=== PATIENT | male | born 1945 | race Caucasian/White ===

== ENCOUNTER 2022-01-12 11:06 | Inpatient (IN) | payer MEDICARE, OTHER ==
[2022-01-11 20:00] VITALS: BP 115/65
[~2022-01-12] VITALS: Ht 180.3 cm; Wt 117.0 kg
--- NOTE | 2022-01-12 11:37 | NUR ---
IV LINE IS ESTABLISHED, BLOOD SPECIMEN COLLECTED AND SENT TO THE LAB. THE LINE IS SALINE LOCKED.
--- NOTE | 2022-01-12 11:43 | NUR ---
URINE COLLECTED AND SENT TO THE LAB
--- NOTE | 2022-01-12 11:43 | NUR ---
X-RAY TECH AT THE BEDSIDE
[2022-01-12 11:50] LABS: BASOPHILS # (AUTO) 0.1 K/uL (0.0-0.2); BASOPHILS % (AUTO) 0.7 % (0.0-2.0); EOSINOPHILS % (AUTO) 1.6 % (0.0-6.0); HEMATOCRIT 30 % (39-51); HEMOGLOBIN 9.8 g/dL (13.5-17.5); LYMPHOCYTES % (AUTO) 13.2 % (20.0-44.0); MEAN CORPUSCULAR HGB CONC 33 g/dl (31.0-36.0); MEAN CORPUSCULAR VOLUME 86 fL (80-96); MONOCYTES # (AUTO) 0.6 K/uL (0.1-1.30); MONOCYTES % (AUTO) 8.5 % (2.0-12.0); NEUTROPHILS # (AUTO) 5.6 K/uL (1.8-8.9); PLATELET COUNT (AUTO) 351 K/uL (150-450); RED BLOOD CELL COUNT(AUTO) 3.46 MIL/uL (4.5-6.0); WHITE BLOOD COUNT (AUTO) 7.4 K/uL (4.3-11.0)
[2022-01-12 11:53] LABS: BILIRUBIN,URINE NEGATIVE (NEGATIVE); COLOR,URINE YELLOW (YELLOW); LEUKOCYTE ESTERASE ,URINE LARGE (NEGATIVE); NITRITE, URINE POSITIVE (NEGATIVE); PROTEIN,URINE NEGATIVE (NEGATIVE); UGLUCOSE NEGATIVE (NEGATIVE); UROBILINOGEN,URINE 0.2 EU/dL (0.2)
[2022-01-12 12:07] LABS: CALCIUM, SERUM 8.8 mg/dL (8.5-10.1); CARBON DIOXIDE 28 mmol/L (21-32); CHLORIDE 105 mmol/L (98-107); CREATININE 0.8 mg/dL (0.6-1.3); GLUCOSE 96 mg/dL (74-106); POTASSIUM 3.3 mmol/L (3.5-5.1); SODIUM SERUM 137 mmol/L (136-145); UREA NITROGEN, BLOOD 13 mg/dL (7-18)
[2022-01-12 12:12] LABS: ALANINE AMINOTRANSFERASE 10 U/L (12-78); ALBUMIN 2.3 g/dL (3.4-5.0); ALKALINE PHOSPHATASE 71 U/L (46-116); ASPARTATE AMINOTRANSFERASE 18 U/L (15-37); BILIRUBIN,DIRECT 0.1 mg/dL (0.0-0.2); BILIRUBIN,TOTAL 0.2 mg/dL (0.2-1.0); TOTAL PROTEIN, SERUM 6.6 g/dL (6.4-8.2)
[2022-01-12] MEDS ORDERED: PIPERACILLIN /TAZOBACTAM 3.375 G in IV D5W 50 ML IV ONE (12:30)
[2022-01-12] MEDS ORDERED: VANCOMYCIN 1 GM in IV D5W 250 ML IV ONE (12:30)
--- NOTE | 2022-01-12 12:32 | NUR ---
LEFT SHOULDER PAIN/REDNESS,THINKS IT'S SPIDER BITE
--- NOTE | 2022-01-12 12:36 | NUR ---
COVID TEST COLLECTED AND SENT
[2022-01-12 12:39] LABS: BACTERIA,URINE 2+ /HPF (None Seen); SQUAMOUS EPITHELIAL CELL,UR Few /HPF (None Seen); WBC,URINE 21-50 /HPF (0-3)
[2022-01-12] MEDS ORDERED: SPIR25TA6 PO (13:11)
[2022-01-12] MEDS ORDERED: DULO30CA52 PO (13:11)
[2022-01-12] MEDS ORDERED: POTA8TAB3 PO (13:11)
[2022-01-12] MEDS ORDERED: RIVA15TA PO (13:11)
[2022-01-12] MEDS ORDERED: ZINC50TA69 PO (13:11)
[2022-01-12] MEDS ORDERED: FINA5TAB11 PO (13:11)
[2022-01-12] MEDS ORDERED: INSU100I47 SQ (13:11)
[2022-01-12] MEDS ORDERED: LEVA0.6320 IH (13:11)
[2022-01-12] MEDS ORDERED: ASCO-340 PO (13:11)
[2022-01-12] MEDS ORDERED: METO100T14 PO (13:11)
[2022-01-12] MEDS ORDERED: PANT40TA49 PO (13:11)
[2022-01-12] MEDS ORDERED: TAMS-12 PO (13:11)
[2022-01-12] MEDS ORDERED: BACL20TA PO (13:11)
[2022-01-12] MEDS ORDERED: BETH10TA4 PO (13:12)
[2022-01-12] MEDS ORDERED: NA P133E RC (13:12)
[2022-01-12] MEDS ORDERED: TYL2T PO (13:12)
[2022-01-12] MEDS ORDERED: DOCU-141 PO (13:12)
[2022-01-12] MEDS ORDERED: HYDR-4303 PO (13:12)
[2022-01-12] MEDS ORDERED: MAGN400O6 PO (13:12)
[2022-01-12] MEDS ORDERED: CEFA1VIA3 IV (13:12)
[2022-01-12] MEDS ORDERED: ACET-868 PO (13:12)
[2022-01-12] MEDS ORDERED: BISA10SU61 RC (13:12)
--- NOTE | 2022-01-12 13:18 | NUR ---
CALLED NURSING SUP CELESTINO PT BED
--- NOTE | 2022-01-12 16:19 | NUR ---
REPORT GIVEN TO YIFAN FOR ASHELY
[2022-01-12 16:22] LABS: FERRITIN 111 ng/mL (8-388); IRON, SERUM 27 ug/dl (50-175)
--- NOTE | 2022-01-12 16:29 | NUR ---
THE PATIENT IS TRANSFERED TO ASSIGNED ROOM IN STABLE CONDITION AND PER POLICY
[2022-01-12] MEDS ORDERED: PIPERACILLIN /TAZOBACTAM 3.375 G in IV D5W 100 ML IV SCH (16:30)
[2022-01-12 16:52] VITALS: BP 118/70
[2022-01-12] MEDS ORDERED: ENOXAPARIN SODIUM 40 MG/0.4 ML DISP.SYRIN SQ SCH (17:00)
--- NOTE | 2022-01-12 17:51 | NUR ---
RECEIVED PATIENT AWAKE ALERT FROM ER REFUSED DESSING TO BE REMOVED FROM LEG,NO ACUTE DISTRESSS,WILL ENDORSE TO NIGHT RN FOR CONTINUITY OF CARE AND ADMISSION.
[2022-01-12] MEDS: ACETAMINOPHEN 325 MG TABLET PO PRN (18:00)
[2022-01-12] MEDS: IV NS 0.9% 1,000 ML IV PRN (18:52)
--- NOTE | 2022-01-12 19:42 | NUR ---
RN NOTE PATIENT WAS TRANSFERRED TO UNIT FROM ER, PATIENT CAME TO UNIT VIA GURNEY WITH NO SIGNS OF DISTRESS. REPORT RECEIVED FROM JEAN-PAUL. PER ER NURSE GUZMAN CATHETER WAS ADVANCED AND REINFLATED AGAIN, IN PLACE AND DRAINING WELL. PATIENT WAS ORIENTED TO ROOM SET UP AND SHOWED PATIENT HOW TO USE CALL LIGHT. PATIENT AWAKE IN BED RESTING, A/O X3. NO S/S OF PAIN NOTED AT THIS TIME. ON ROOM AIR, NO DISTRESS OR SHORTNESS OF BREATH NOTED. IV ACCESS LFA #20G, INTACT, PATENT AND FLUSHING WELL. FALL AND SAFETY MEASURES IN PLACE, BED ALARM ON BED IN LOW AND LOCK POSITION, CALL LIGHT AND TABLE WITHIN EASY REACH, SIDE RAILS UP X2. WILL ENDORSE TO STAGE MANAGER.
[2022-01-12 20:00] VITALS: BP 115/65
--- NOTE | 2022-01-12 20:28 | NUR ---
RN NOTE RECEIVED PT IN BED, AWAKE, AOX3. DENIES ANY PAIN AT THIS TIME. NO SOB. ON O2 AT 2L WITH 94% O2 SAT. 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 PT WITH PICC ON BARNEY, INTACT AND PATENT, FLUSHES WELL. NS RUNNING AT 75ML/HR. GUZMAN IN PLACE, DRAINING CLEAR URINE OUTPUT. PT WITH WOUND ON LFOOT, CONNECTED TO WOUNDVAC. ALL SAFETY MEASURES IN PLACE, BELONGINGS AND CALL LIGHT WITHIN REACH. WILL CONTINUE TO MONITOR.
[2022-01-12] MEDS ORDERED: BISACODYL SUPP (10 MG) 10 MG/SUPP.RECT SUPP.RECT RC PRN (21:00)
[2022-01-12] MEDS: VANCOMYCIN 1.25 GM in IV D5W 250 ML IV SCH (21:51)
[2022-01-12] MEDS: SPIRONOLACTONE 25 MG TABLET PO SCH (21:55)
[2022-01-12] MEDS: TAMSULOSIN 0.4 MG CAP.SR.24H PO SCH (21:55)
[2022-01-12] MEDS: METOPROLOL TARTRATE 50 MG TABLET PO SCH (21:56)
[2022-01-12] MEDS: RIVAROXABAN 15 MG TABLET PO SCH (21:57)
[2022-01-12] MEDS ORDERED: DEXTROSE 50%-WATER 50 ML DISP.SYRIN IV PRN (22:00)
[2022-01-12] MEDS: DOCUSATE SODIUM 100 MG CAPSULE PO SCH (22:00)
[2022-01-12] MEDS: BLOOD SUGAR DIAGNOSTIC 1 EACH STRIP VI SCH (22:34)
[2022-01-12] MEDS: PIPERACILLIN /TAZOBACTAM 3.375 G in IV D5W 100 ML IV SCH (23:19)
[2022-01-13 04:00] VITALS: BP 121/78
[2022-01-13] MEDS: PIPERACILLIN /TAZOBACTAM 3.375 G in IV D5W 100 ML IV SCH ×3 (06:11→22:22)
[2022-01-13 06:39] LABS: BASOPHILS % (AUTO) 0.6 % (0.0-2.0); EOSINOPHILS % (AUTO) 2.6 % (0.0-6.0); HEMATOCRIT 27 % (39-51); HEMOGLOBIN 8.7 g/dL (13.5-17.5); LYMPHOCYTES % (AUTO) 16.1 % (20.0-44.0); MEAN CORPUSCULAR HGB CONC 32 g/dl (31.0-36.0); MEAN CORPUSCULAR VOLUME 87 fL (80-96); MONOCYTES # (AUTO) 0.6 K/uL (0.1-1.30); MONOCYTES % (AUTO) 9.3 % (2.0-12.0); NEUTROPHILS # (AUTO) 4.4 K/uL (1.8-8.9); NEUTROPHILS % (AUTO) 71.4 % (43.0-81.0); PLATELET COUNT (AUTO) 323 K/uL (150-450); RED BLOOD CELL COUNT(AUTO) 3.15 MIL/uL (4.5-6.0); WHITE BLOOD COUNT (AUTO) 6.2 K/uL (4.3-11.0)
--- NOTE | 2022-01-13 06:52 | NUR ---
RN NOTE PT ABLE TO MAKE NEEDS KNOWN. ASSISTED ON NEEDS. ON FREQUENT VISUALS CHECKS, CALL LIGHT WITHIN REACH AT ALL TIMES. CHANGE PICC LINE DRESSING, NO S/SX OF INFECTION NOTED. FLUSHES WELL WITH GOOD BLOOD RETURN. DUE IV ATBS WERE GIVEN ORDERED. CONTINUE ON IVFLUIDS OF NS AT 75ML/HR. 2 LOOSE BM NOTED. WOUND VAC IN PLACE CONTINUOUS. GUZMAN DRAINS WELL. WILL ENDORSE TO NEXT SHIFT NURSE FOR ASHELY.
[2022-01-13 07:04] LABS: CALCIUM, SERUM 8.9 mg/dL (8.5-10.1); CREATININE 0.8 mg/dL (0.6-1.3); MAGNESIUM 1.9 mg/dL (1.8-2.4); PHOSPHORUS 3.1 mg/dL (2.5-4.9)
--- NOTE | 2022-01-13 07:35 | NUR ---
WOUND CARE CONSULT: PT PRESENTS WITH LEFT LATERAL ANKLE WOUND, RASH/REDNESS TO ABDOMINAL/GROIN FOLDS AND BUTTOCKS WELL INTACT DEEP TISSUE INJURY TO SACRUM WITH SURROUNDING SCARRING, ALL PRESENT ON ADMISSION. RECOMMENDATIONS MADE FOR SKIN PROTECTION. DISCUSSED WITH NURSING STAFF. PT IS INCONTINENT OF STOOL. DPM CONSULT CALLED TO DR HAMPAPUR. VEGA IN AGREEMENT WITH PLAN OF CARE. Addendum: 01/13/22 at 0737 by LEANNA THIBODEAUX WNDNU Amended: Links added.
--- NOTE | 2022-01-13 07:54 | NUR ---
RN NOTE RECEIVED PT IN BED, AWAKE, AOX3. DENIES ANY PAIN AT THIS TIME. NO SOB. ON O2 AT 2L WITH 94% O2 SAT. 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 PT WITH PICC ON BARNEY, INTACT AND PATENT, FLUSHES WELL. NS RUNNING AT 75ML/HR. GUZMAN IN PLACE, DRAINING CLEAR URINE OUTPUT. PT WITH WOUND ON Lt ANKLE. PICTURE ON FILE. ALL SAFETY MEASURES IN PLACE, BELONGINGS AND CALL LIGHT WITHIN REACH. WILL CONTINUE TO MONITOR.
[2022-01-13] MEDS ORDERED: Z GUARD REMEDY 4 OZ OINT TP PRN (08:00)
[2022-01-13] MEDS: BLOOD SUGAR DIAGNOSTIC 1 EACH STRIP VI SCH ×4 (08:36→21:59)
[2022-01-13] MEDS: INSULIN REGULAR, HUMAN 100 UNIT/ML 3 ML VIAL SQ PRN ×2 (08:38→11:17)
[2022-01-13] MEDS: PANTOPRAZOLE 40 MG TABLET.DR PO SCH (08:54)
[2022-01-13] MEDS: DOCUSATE SODIUM 100 MG CAPSULE PO SCH ×2 (09:03→21:03)
[2022-01-13] MEDS: SPIRONOLACTONE 25 MG TABLET PO SCH ×2 (09:03→17:24)
[2022-01-13] MEDS: DULOXETINE HCL 30 MG CAPSULE.DR PO SCH (09:04)
[2022-01-13] MEDS: METOPROLOL TARTRATE 50 MG TABLET PO SCH ×2 (09:05→21:04)
[2022-01-13] MEDS: FINASTERIDE (5 MG) 5 MG TABLET PO SCH (09:05)
[2022-01-13] MEDS: ZINC SULFATE 220 MG CAPSULE PO SCH (09:06)
[2022-01-13] MEDS: BETHANECHOL CHLORIDE (10 MG) 10 MG TABLET PO SCH ×3 (09:06→17:24)
[2022-01-13] MEDS: ASCORBIC ACID 500 MG TABLET PO SCH (09:06)
[2022-01-13] MEDS: CLOTRIMAZOLE 1% 15 GM TUBE TP SCH ×2 (09:18→17:29)
[2022-01-13] MEDS: Z GUARD REMEDY 4 OZ OINT TP SCH (09:19)
[2022-01-13] MEDS: VANCOMYCIN 1.25 GM in IV D5W 250 ML IV SCH ×2 (09:24→22:17)
[2022-01-13] MEDS ORDERED: POTASSIUM CHLORIDE 20 MEQ TAB.PRT.SR PO ONE (09:30)
[2022-01-13 09:40] VITALS: BP 125/73
[2022-01-13 12:00] VITALS: BP 125/73
--- NOTE | 2022-01-13 12:45 | NUR ---
SS Note: SS received consult on pt.s request. Pt. Is a 76-year-old male who demonstrates adequate insight to the reason for hospitalization. Per EMR, pt. was brought to ER for abdominal pain from his nursing facility. Pt. was oriented x3, alert, and cooperative. During interview, pt. was capable of following directions and appeared unkempt. Pt.s speech was at a normal rate and pt.s mood was elevated. Pt. reported no hx of mental health, substance abuse, suicidal ideation, or homicidal ideation. Pt. denies auditory hallucinations, visual hallucinations, paranoia, or delusions. SW explored pt.s living situation. Per pt., he stays at a nursing facility and has been there for couple weeks. Pt. does not remember the name of the nursing facility, pt. stated it is somewhere located in [place]. Pt. stated that he wants a new snf due to the current one not having any doctors on site. Pt. mentioned that he wants a doctor at the snf just incase of an emergency. Per pt., the nurses/MANAGER VALIDATION are supportive and care for him as needed. Plan: SW provided available resources and pt. denied. SW will notify case management regarding placement.
[2022-01-13] MEDS: IV NS 0.9% 1,000 ML IV PRN (12:58)
[2022-01-13 14:00] VITALS: BP_SYST 118; BP_SYST 125; BP_DIAS 73; BP_DIAS 75
--- NOTE | 2022-01-13 15:52 | NUR ---
RN NOTE ORDERS RECEIVED FOR STOOL SPECIMEN COLLECTION FROM [facility]. SMALL AMOUNT OF STOOL OBTAINED AND SENT TO LAB FOR C. DIFF TESTING. PT ISOLATED.
[2022-01-13 16:00] VITALS: BP 118/75
--- NOTE | 2022-01-13 16:26 | NUR ---
GUZMAN CATHETER WAS RECENTLY CHANGED IN THE EMERGENCY ROOM DURING ADMISSION. DRAINING WELL. CHARGE NURSE INFORMED. Addendum: 01/13/22 at 1630 by GEMMA DAS RN Amended: Links added.
[2022-01-13] MEDS: *INSULIN REGULAR(HUMULIN R)HUM 100 UNIT/ML VIAL SQ PRN ×2 (16:50→22:00)
[2022-01-13] MEDS: RIVAROXABAN 15 MG TABLET PO SCH (17:27)
--- NOTE | 2022-01-13 18:28 | NUR ---
RN NOTE PT IN BED, AWAKE, AOX3. DENIES ANY PAIN AT THIS TIME. NO SOB. ON O2 AT 2L WITH 94% O2 SAT. 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 PT WITH PICC ON BARNEY, INTACT AND PATENT, FLUSHES WELL. NS RUNNING AT 75ML/HR. GUZMAN IN PLACE, DRAINING CLEAR URINE OUTPUT. WOUND CARE PERFORMED ON LT ANKLE BY DR ENRIQUEZ. ALL SAFETY MEASURES IN PLACE, BELONGINGS AND CALL LIGHT WITHIN REACH. NEEDS ATTENDED. WILL ENDORSE TO NEXT NURSE ON DUTY FOR CONTINUATION OF CARE.
--- NOTE | 2022-01-13 19:40 | NUR ---
RN NOTES RECEIVED CARE OF PATIENT WHILE PATIENT AWAKE, A/O X3, ABLE TO MAKE NEEDS KNOWN. PATIENT IS LEGALLY BLIND ON BOTH EYES. NO PAIN OR DISCOMFORT EXPRESSED AT THIS TIME. REPOSITIONED PATIENT. PATIENT ON O2 THERAPY VIA NC AT 2L/MIN, O2 SAT 97%, NO SOB NOTED. PT WITH PICC ON BARNEY, INTACT AND PATENT, FLUSHES WELL. NS RUNNING AT 75ML/HR. GUZMAN IN PLACE, DRAINING CLEAR URINE OUTPUT. ALL SAFETY MEASURES IN PLACE, WILL CONTINUE TO MONITOR.
[2022-01-13 20:00] VITALS: BP 112/67
[2022-01-13] MEDS: TAMSULOSIN 0.4 MG CAP.SR.24H PO SCH (21:03)
[2022-01-14] MEDS: IV NS 0.9% 1,000 ML IV PRN (03:19)
[2022-01-14 04:00] VITALS: BP 145/73
[2022-01-14] MEDS: PIPERACILLIN /TAZOBACTAM 3.375 G in IV D5W 100 ML IV SCH (06:03)
--- NOTE | 2022-01-14 06:22 | NUR ---
RN CLOSING NOTES WILL ENDORSE CARE OF PATIENT TO AM NURSE. NO SIGNIFICANT FINDINGS UPON ALL NURSING ASSESSMENTS. ALL PATIENT NEEDS MET THOUGHT SHIFT. ALL DUE MEDS GIVEN. SAFETY MEASURES KEPT IN PLACE. WILL ENDORSE TO AM NURSE FOR ASHELY.
[2022-01-14 07:18] LABS: CALCIUM, SERUM 8.7 mg/dL (8.5-10.1); CARBON DIOXIDE 27 mmol/L (21-32); CHLORIDE 107 mmol/L (98-107); CREATININE 0.7 mg/dL (0.6-1.3); GLUCOSE 88 mg/dL (74-106); SODIUM SERUM 141 mmol/L (136-145); UREA NITROGEN, BLOOD 8 mg/dL (7-18)
--- NOTE | 2022-01-14 07:30 | NUR ---
RN OPENING NOTE PATIENT IS AWAKE IN BED, AWAKE, ALERT, ORIENTED X 4. WITH OXYGEN VIA NASAL CANNULA AT 2L/MIN. O2 SATURATION AT 97%. NOT IN ANY FORM OF DISTRESS. WITH RIGHT FOREARM GAUGE 2O IV LINE INFUSING WITH NS AT 75 ML/HR, AND WITH NO SIGNS OF INFILTRATION OR PHLEBITIS. WITH RIGHT UPPER ARM PICC LINE, INTACT AND PATENT. WITH LEFT WRIST ANTECUBITAL SALINE LOCK GAUGE 20 INTACT AND PATENT. BED IS LOCKED IN LOWEST POSITION, 3 SIDE RAILS UP, CALL LIGHT WITHIN REACH. WILL MONITOR THROUGHOUT SHIFT.
[2022-01-14 07:43] LABS: POTASSIUM 2.7 mmol/L (3.5-5.1)
--- NOTE | 2022-01-14 07:45 | NUR ---
RN NOTE CRITICAL LAB VALUE OF POTASSIUM AT 2.7. DR CRUZ MADE AWARE THROUGH TEXT. AWAITING ORDER.
[2022-01-14] MEDS: ACETAMINOPHEN 325 MG TABLET PO PRN ×2 (07:54→18:45)
[2022-01-14 08:00] VITALS: BP 147/84
--- NOTE | 2022-01-14 08:32 | NUR ---
WOUND CARE CONSULT: LEFT LATERAL ANKLE WOUND (STATUS POST SURGICAL DEBRIDEMENT) MEASURES 5CM X 2CM X 0.1CM AND IS RED IN COLOR WITH SCANT PINK DRAINAGE, NO ODOR. SLIGHT SWELLING OF ANKLE NOTED. [employer] WOUND VAC APPLIED TO LEFT ANKLE WOUND. SKIN PREP AND VAC DRAPE APPLIED TO PERIWOUND AREA, GRANUFOAM TO WOUND, VAC AT 100mmHg CONTINUOUS SETTING. KERLIX USED AND LEG ELEVATED ON PILLOW. PT TOLERATED WELL. WOUND PHOTO TAKEN AND PLACED IN CHART. Addendum: 01/14/22 at 1028 by LEANNA THIBODEAUX WNDNU ADDITIONAL NOTE: PT NOTED TO HAVE EXCORIATED AREA TO ANTERIOR PENIS. RECOMMENDATIONS MADE FOR SKIN PROTECTION AND CARE. DISCUSSED WITH NURSING STAFF. PT HAS MEGAN BELTRAN.
[2022-01-14] MEDS: ASCORBIC ACID 500 MG TABLET PO SCH (09:26)
[2022-01-14] MEDS: PANTOPRAZOLE 40 MG TABLET.DR PO SCH (09:27)
[2022-01-14] MEDS: ZINC SULFATE 220 MG CAPSULE PO SCH (09:27)
[2022-01-14] MEDS: DOCUSATE SODIUM 100 MG CAPSULE PO SCH ×2 (09:27→21:03)
[2022-01-14] MEDS: SPIRONOLACTONE 25 MG TABLET PO SCH ×2 (09:27→18:19)
[2022-01-14] MEDS: DULOXETINE HCL 30 MG CAPSULE.DR PO SCH (09:28)
[2022-01-14] MEDS: METOPROLOL TARTRATE 50 MG TABLET PO SCH ×2 (09:28→21:05)
[2022-01-14] MEDS: FINASTERIDE (5 MG) 5 MG TABLET PO SCH (09:28)
[2022-01-14] MEDS: Z GUARD REMEDY 4 OZ OINT TP SCH (09:29)
[2022-01-14] MEDS: BLOOD SUGAR DIAGNOSTIC 1 EACH STRIP VI SCH ×4 (09:29→22:19)
[2022-01-14] MEDS: CLOTRIMAZOLE 1% 15 GM TUBE TP SCH ×2 (09:29→17:00)
[2022-01-14] MEDS: BETHANECHOL CHLORIDE (10 MG) 10 MG TABLET PO SCH ×3 (09:31→18:19)
[2022-01-14] MEDS ORDERED: POTASSIUM CHLORIDE 20 MEQ TAB.PRT.SR PO ONE (10:00)
[2022-01-14 10:09] LABS: BASOPHILS % (AUTO) 0.6 % (0.0-2.0); EOSINOPHILS % (AUTO) 2.8 % (0.0-6.0); HEMATOCRIT 27 % (39-51); HEMOGLOBIN 8.8 g/dL (13.5-17.5); LYMPHOCYTES # (AUTO) 1.1 K/uL (0.8-4.8); LYMPHOCYTES % (AUTO) 18.9 % (20.0-44.0); MEAN CORPUSCULAR HGB CONC 33 g/dl (31.0-36.0); MEAN CORPUSCULAR VOLUME 86 fL (80-96); MONOCYTES # (AUTO) 0.6 K/uL (0.1-1.30); MONOCYTES % (AUTO) 9.5 % (2.0-12.0); NEUTROPHILS % (AUTO) 68.2 % (43.0-81.0); PLATELET COUNT (AUTO) 340 K/uL (150-450); RED BLOOD CELL COUNT(AUTO) 3.15 MIL/uL (4.5-6.0); WHITE BLOOD COUNT (AUTO) 5.9 K/uL (4.3-11.0)
[2022-01-14] MEDS: VANCOMYCIN 1 GM in IV D5W 250 ML IV SCH ×2 (10:51→22:09)
[2022-01-14] MEDS: POTASSIUM CL. PREMIX PERIPHER. 50 ML IV SCH ×4 (11:23→14:43)
[2022-01-14] MEDS: GUAIFENESIN LA 600 MG TABLET.SA PO SCH ×2 (11:35→21:05)
[2022-01-14 12:00] VITALS: BP 147/84
[2022-01-14] MEDS: CEFEPIME 2 GM in IV D5W 100 ML IV SCH ×2 (13:34→21:03)
[2022-01-14] MEDS: RIVAROXABAN 15 MG TABLET PO SCH (18:21)
--- NOTE | 2022-01-14 18:53 | NUR ---
RN CLOSING NOTE PATIENT IS AWAKE IN BED, AWAKE, ALERT, ORIENTED X 4. WITH OXYGEN VIA NASAL CANNULA AT 2L/MIN. O2 SATURATION AT 97%. NOT IN ANY FORM OF DISTRESS. WITH LEFT FOREARM IV LINE INFUSING WITH NS AT 75 ML/HR, WITH PICC LINE ON RIGHT ARM INTACT AND WITH NO SIGNS OF INFILTRATION OR PHLEBITIS. WITH RIGHT UPPER ARM PICC LINE, INTACT AND PATENT. PATIENT REMAINED STABLE THROUGHOUT SHIFT. BED IS LOCKED IN LOWEST POSITION, 3 SIDE RAILS UP, CALL LIGHT WITHIN REACH. WILL ENDORSE TO COUNTER FORMER NURSE.
--- NOTE | 2022-01-14 19:48 | NUR ---
RN OPENING NOTE RECEIVED PATIENT A/OX4. NO S/S OF APPARENT DISTRESS ON ROOM AIR. PATIENT IS LEGALLY BLIND, ORIENTED WITH THE USE OF CALL LIGHT. DENIES PAIN AT THIS TIME. NOTED TO HAVE WOUND VAC ON LEFT ANKLE WITH NO NOTED OUTPUT. GUZMAN CATHETER NOTE IN PLACE DRAINING CLEAR, YELLOW URINE. R.UA PICC LINE RUNNING NS @75MLS/HR. NEEDS ATTENDED AT THIS TIME. SAFETY IN PLACE. CONTACT ISOLATION FOR C. DIFF IN PLACE. WILL CONTINUE WITH PLAN OF CARE FOR PATIENT.
[2022-01-14 20:00] VITALS: BP 143/86
[2022-01-14] MEDS: CEFTAZIDIME 1 G in IV D5W 50 ML IV SCH (21:02)
[2022-01-14] MEDS: TAMSULOSIN 0.4 MG CAP.SR.24H PO SCH (21:05)
[2022-01-14] MEDS: *INSULIN REGULAR(HUMULIN R)HUM 100 UNIT/ML VIAL SQ PRN (22:21)
[2022-01-15] MEDS: IV NS 0.9% 1,000 ML IV PRN (02:57)
[2022-01-15 04:00] VITALS: BP 140/91
[2022-01-15] MEDS: CEFTAZIDIME 1 G in IV D5W 50 ML IV SCH (04:53)
[2022-01-15] MEDS: CEFEPIME 2 GM in IV D5W 100 ML IV SCH (04:53)
[2022-01-15 06:32] LABS: BASOPHILS % (AUTO) 0.5 % (0.0-2.0); EOSINOPHILS % (AUTO) 1.6 % (0.0-6.0); HEMATOCRIT 31 % (39-51); HEMOGLOBIN 9.5 g/dL (13.5-17.5); LYMPHOCYTES % (AUTO) 13.7 % (20.0-44.0); MEAN CORPUSCULAR HGB CONC 31 g/dl (31.0-36.0); MEAN CORPUSCULAR VOLUME 88 fL (80-96); MONOCYTES # (AUTO) 0.7 K/uL (0.1-1.30); MONOCYTES % (AUTO) 9.7 % (2.0-12.0); NEUTROPHILS # (AUTO) 5.4 K/uL (1.8-8.9); NEUTROPHILS % (AUTO) 74.5 % (43.0-81.0); PLATELET COUNT (AUTO) 321 K/uL (150-450); RED BLOOD CELL COUNT(AUTO) 3.49 MIL/uL (4.5-6.0); WHITE BLOOD COUNT (AUTO) 7.2 K/uL (4.3-11.0)
--- NOTE | 2022-01-15 06:52 | NUR ---
MS RN CLOSING PATIENT IN BED, A/OX4. NO S/S OF APPARENT DISTRESS ON 1LPM OF O2 VIA NC. NO C/O PAIN. BEEN WANTING TO SPEAK TO THE DOCTOR. Phoebe LYNCH PICC RUNNING NS @75MLS/HR. WOUND VAC NO OUTPUT. GUZMAN DRAINING CLEAR YELLOW URINE WITH UO OF 2,000 ML. NEEDS ATTENDED. ALL SCHEDULED MEDICATIONS ADMINISTERED. SAFETY KEPT IN PLACE THE WHOLE SHIFT. WILL ENDORSE TO MORNING SHIFT RN FOR CONTINUITY OF CARE.
[2022-01-15 07:08] LABS: CARBON DIOXIDE 27 mmol/L (21-32); CHLORIDE 104 mmol/L (98-107); CREATININE 0.7 mg/dL (0.6-1.3); GLUCOSE 113 mg/dL (74-106); MAGNESIUM 1.6 mg/dL (1.8-2.4); PHOSPHORUS 2.6 mg/dL (2.5-4.9); POTASSIUM 2.9 mmol/L (3.5-5.1); SODIUM SERUM 138 mmol/L (136-145); UREA NITROGEN, BLOOD 7 mg/dL (7-18)
--- NOTE | 2022-01-15 07:30 | NUR ---
RN OPENING NOTES RECEIVED PATIENT AWAKE ON BED. A/O X3, ON NC @ 1L, TOLERATING WELL, NO SOB NOTED,, NOT IN DISTRESS, WITH PICC LINE ON BARNEY WITH IVF NS AT 75 ML/HR, INFUSING WELL. ALL SAFETY PRECAUTIONS IN PLACE, BED ON LOWEST LOCK POSITION, WITH CALL LIGHT WITHIN REACH. WILL CONTINUE TO MONITOR.
[2022-01-15] MEDS: DOCUSATE SODIUM 100 MG CAPSULE PO SCH ×2 (09:00→20:16)
[2022-01-15] MEDS: BLOOD SUGAR DIAGNOSTIC 1 EACH STRIP VI SCH ×4 (09:16→22:04)
[2022-01-15] MEDS: METOPROLOL TARTRATE 50 MG TABLET PO SCH ×2 (09:27→20:17)
[2022-01-15] MEDS: ZINC SULFATE 220 MG CAPSULE PO SCH (09:27)
[2022-01-15] MEDS: PANTOPRAZOLE 40 MG TABLET.DR PO SCH (09:28)
[2022-01-15] MEDS: DULOXETINE HCL 30 MG CAPSULE.DR PO SCH (09:29)
[2022-01-15] MEDS: FINASTERIDE (5 MG) 5 MG TABLET PO SCH (09:29)
[2022-01-15] MEDS: SPIRONOLACTONE 25 MG TABLET PO SCH ×2 (09:29→17:23)
[2022-01-15] MEDS: ASCORBIC ACID 500 MG TABLET PO SCH (09:29)
[2022-01-15] MEDS ORDERED: MAGNESIUM OXIDE 400 MG TABLET PO ONE (09:30)
[2022-01-15] MEDS: CLOTRIMAZOLE 1% 15 GM TUBE TP SCH ×2 (09:30→17:24)
[2022-01-15] MEDS: GUAIFENESIN LA 600 MG TABLET.SA PO SCH ×2 (09:30→20:16)
[2022-01-15] MEDS: BETHANECHOL CHLORIDE (10 MG) 10 MG TABLET PO SCH ×3 (09:30→17:23)
[2022-01-15] MEDS: Z GUARD REMEDY 4 OZ OINT TP SCH (09:31)
[2022-01-15] MEDS: VANCOMYCIN 1 GM in IV D5W 250 ML IV SCH ×2 (09:37→21:19)
--- NOTE | 2022-01-15 09:51 | NUR ---
WOUND CARE FOLLOW UP: WOUND VAC FUNCTIONING WELL TO LEFT ANKLE AT 100mmHg CONTINUOUS SETTING. NO DRAINAGE NOTED IN CANISTER. DISCUSSED WOUND CARE/DISCHARGE PLANNING WITH PRODUCT TESTER FIBERGLASSDR ZOE Patel AND NURSING STAFF.
[2022-01-15] MEDS ORDERED: POTASSIUM CHLORIDE 20 MEQ TAB.PRT.SR PO SCH (10:00)
[2022-01-15 12:00] VITALS: BP 152/91
[2022-01-15] MEDS: ONDANSETRON HCL/PF 4 MG/2 ML VIAL IVP PRN (12:00)
[2022-01-15] MEDS ORDERED: METOCLOPRAMIDE HCL 10 MG/2 ML VIAL IV PRN (12:30)
[2022-01-15] MEDS ORDERED: CEFTAZIDIME 2 G in IV D5W 50 ML IV SCH (13:00)
[2022-01-15] MEDS: CEFTAZIDIME 2 G in IV D5W 100 ML IV SCH ×2 (13:35→20:16)
[2022-01-15] MEDS: RIVAROXABAN 15 MG TABLET PO SCH (17:29)
--- NOTE | 2022-01-15 19:56 | NUR ---
RN OPENING NOTES RECEIVED PT IN BED, AWAKE. AOx4, ABLE TO MAKE NEEDS KNOWN. ON NC 1LPM AND TOLERATING WELL. NO SOB NOTED. NO S/SX OF RESPIRATORY DISTRESS NOTED. IV ACCESS IN BARNEY PICC LINE RUNNING NS @ 75 ML/HR. SAFETY PRECAUTIONS IN PLACE: BED IN LOWEST, LOCKED POSITION, SIDERAILS UPx2, AND BRAKES ON. TABLE AND CALL LIGHT WITHIN REACH. WILL CONTINUE TO MONITOR.
[2022-01-15 20:00] VITALS: BP_SYST 141; BP_DIAS 83; BP_DIAS 84
[2022-01-15] MEDS: ACETAMINOPHEN 325 MG TABLET PO PRN (20:16)
[2022-01-15] MEDS: TAMSULOSIN 0.4 MG CAP.SR.24H PO SCH (21:19)
[2022-01-15] MEDS: *INSULIN REGULAR(HUMULIN R)HUM 100 UNIT/ML VIAL SQ PRN (22:06)
[2022-01-16] MEDS: IV NS 0.9% 1,000 ML IV PRN (04:06)
[2022-01-16] MEDS: CEFTAZIDIME 2 G in IV D5W 100 ML IV SCH ×3 (04:06→21:23)
--- NOTE | 2022-01-16 06:44 | NUR ---
RN CLOSING NOTES PT IN BED, ASLEEP, RESPONDS TO VERBAL STIMULI. AOx4, ABLE TO MAKE NEEDS KNOWN. ON NC 1LPM AND TOLERATING WELL. NO SOB NOTED. NO S/SX OF RESPIRATORY DISTRESS NOTED. IV ACCESS IN BARNEY PICC LINE RUNNING NS @ 75 ML/HR. ALL ORDERS CARRIED OUT. ALL NEEDS MET. PT KEPT CLEAN AND DRY. SAFETY PRECAUTIONS IN PLACE: BED IN LOWEST, LOCKED POSITION, SIDERAILS UPx2, AND BRAKES ON. TABLE AND CALL LIGHT WITHIN REACH. WILL ENDORSE TO ONCOMING SHIFT FOR ASHELY.
[2022-01-16 06:49] LABS: BASOPHILS % (AUTO) 0.4 % (0.0-2.0); HEMATOCRIT 27 % (39-51); HEMOGLOBIN 8.5 g/dL (13.5-17.5); LYMPHOCYTES # (AUTO) 1.1 K/uL (0.8-4.8); LYMPHOCYTES % (AUTO) 15.4 % (20.0-44.0); MEAN CORPUSCULAR HGB CONC 32 g/dl (31.0-36.0); MEAN CORPUSCULAR VOLUME 87 fL (80-96); MONOCYTES # (AUTO) 0.7 K/uL (0.1-1.30); MONOCYTES % (AUTO) 9.9 % (2.0-12.0); NEUTROPHILS # (AUTO) 5.2 K/uL (1.8-8.9); NEUTROPHILS % (AUTO) 73.3 % (43.0-81.0); PLATELET COUNT (AUTO) 303 K/uL (150-450); RED BLOOD CELL COUNT(AUTO) 3.03 MIL/uL (4.5-6.0); WHITE BLOOD COUNT (AUTO) 7.1 K/uL (4.3-11.0)
[2022-01-16 07:03] LABS: CALCIUM, SERUM 8.1 mg/dL (8.5-10.1); MAGNESIUM 1.7 mg/dL (1.8-2.4); PHOSPHORUS 3.2 mg/dL (2.5-4.9); POTASSIUM 3.3 mmol/L (3.5-5.1)
--- NOTE | 2022-01-16 07:25 | NUR ---
RN OPENING NOTES RECEIVED PATIENT IN BED, AWAKE, A/O X4, VERBALLY RESPONSIVE. NO SIGNS OF ACUTE RESPIRATORY DISTRESS NOTED. ON O2 @1LPM VIA N/C, NO SOB NOTED, BREATHING EVEN AND UNLABORED. NOTED WITH PICC LINE ON RIGHT UPPER ARM WITH NS @ 75ML/HR RUNNING. ALSO NOTED WITH WOUND VAC TO LEFT ANKLE INTACT, TOLERATING WELL. NO C/O PAIN AT THIS TIME. F/C INTACT, DRAINING CLEAR YELLOW URINE. SAFETY MEASURE IN PLACE. BED IN LOWEST AND LOCKED POSITION, SIDE RAILS UP X2, CALL LIGHT PLACED WITHIN EASY REACH. WILL CONTINUE TO MONITOR PATIENT.
[2022-01-16] MEDS: BLOOD SUGAR DIAGNOSTIC 1 EACH STRIP VI SCH ×4 (07:52→22:15)
[2022-01-16] MEDS: INSULIN REGULAR, HUMAN 100 UNIT/ML 3 ML VIAL SQ PRN ×4 (07:53→22:15)
[2022-01-16] MEDS ORDERED: POTASSIUM CHLORIDE 20 MEQ TAB.PRT.SR PO ONE (08:30)
[2022-01-16] MEDS: DULOXETINE HCL 30 MG CAPSULE.DR PO SCH (08:35)
[2022-01-16] MEDS: PANTOPRAZOLE 40 MG TABLET.DR PO SCH (08:35)
[2022-01-16] MEDS: ASCORBIC ACID 500 MG TABLET PO SCH (08:36)
[2022-01-16] MEDS: SPIRONOLACTONE 25 MG TABLET PO SCH ×2 (08:36→17:03)
[2022-01-16] MEDS: ZINC SULFATE 220 MG CAPSULE PO SCH (08:36)
[2022-01-16] MEDS: FINASTERIDE (5 MG) 5 MG TABLET PO SCH (08:36)
[2022-01-16] MEDS: METOPROLOL TARTRATE 50 MG TABLET PO SCH ×2 (08:36→21:24)
[2022-01-16] MEDS: BETHANECHOL CHLORIDE (10 MG) 10 MG TABLET PO SCH ×3 (08:39→17:03)
[2022-01-16] MEDS: GUAIFENESIN LA 600 MG TABLET.SA PO SCH ×2 (08:39→21:23)
[2022-01-16] MEDS: DOCUSATE SODIUM 100 MG CAPSULE PO SCH ×2 (08:39→21:23)
[2022-01-16] MEDS: Z GUARD REMEDY 4 OZ OINT TP SCH (08:43)
[2022-01-16] MEDS: CLOTRIMAZOLE 1% 15 GM TUBE TP SCH ×2 (08:43→16:01)
[2022-01-16] MEDS ORDERED: MAGNESIUM OXIDE 400 MG TABLET PO ONE (09:00)
[2022-01-16] MEDS ORDERED: VANCOMYCIN 0.75 GM in IV D5W 250 ML IV SCH (10:00)
[2022-01-16] MEDS: CALCIUM CARBONATE 500 MG TAB.CHEW PO PRN ×2 (10:25→21:36)
[2022-01-16 12:00] VITALS: BP 123/72
[2022-01-16] MEDS ORDERED: SOD FERRIC GLUC 125 MG in IV NS 0.9% 100 ML IV SCH (14:00)
[2022-01-16] MEDS: RIVAROXABAN 15 MG TABLET PO SCH (17:05)
[2022-01-16] MEDS: ONDANSETRON HCL/PF 4 MG/2 ML VIAL IVP PRN (17:49)
[2022-01-16] MEDS: ACETAMINOPHEN 325 MG TABLET PO PRN (17:55)
--- NOTE | 2022-01-16 18:53 | NUR ---
RN CLOSING NOTES PATIENT IN BED, AWAKE, A/O X4, VERBALLY RESPONSIVE. NO SIGNS OF ACUTE RESPIRATORY DISTRESS NOTED. REMAINS ON O2 @1LPM VIA N/C, NO SOB NOTED, BREATHING EVEN AND UNLABORED. PICC LINE ON RIGHT UPPER ARM, INTACT AND PATENT WITH NS @ 75ML/HR RUNNING. WOUND VAC TO LEFT ANKLE INTACT, TOLERATING WELL. F/C INTACT, DRAINING CLEAR YELLOW URINE. SAFETY MEASURE MAINTAINED. BED IN LOWEST AND LOCKED POSITION, SIDE RAILS UP X2, CALL LIGHT PLACED WITHIN EASY REACH. WILL ENDORSE TO NEXT SHIFT FOR CONTINUITY OF CARE.
--- NOTE | 2022-01-16 19:15 | NUR ---
RN OPENING NOTES RECEIVED PATIENT ON BED, ALERT AND VERBALLY RESPONSIVE, A/O x 4, LEGALLY BLIND, ON NASAL CANULA @ 1LPM SATING AT 95%, RESPIRATORY EVEN AND UNLABORED, NO SOB NOTED, NOT IN ACUTE DISTRESS. REMAIN AFEBRILE. NOTED WITH BARNEY PICC LINE, PATENT, INTACT. FLUSHED WITH NS, NO S/S OF INFILTRATION NOTED AT SITE. RUNNING WITH NS @ 75 ML/HR. WITH GUZMAN CATHETER INTACT AND PATENT, DRAINING WITH CLEAR YELLOW URINE VIA GRAVITY. PATIENT NOTED WITH LEFT ANKLE SURGICAL WOUND WITH WOUND VAC CONNECTED, SETTINGS TOLERATED WELL, WOUND DRESSING INTACT. ALL SAFETY MEASURE PROVIDED. BED IN LOWEST POSITION, LOCKED. BED ALARM ARMED. CALL LIGHT WITH IN REACH. CONTINUE TO MONITOR.
[2022-01-16 20:00] VITALS: BP 148/82
[2022-01-16] MEDS: TAMSULOSIN 0.4 MG CAP.SR.24H PO SCH (21:23)
--- NOTE | 2022-01-16 21:27 | NUR ---
RN NOTES Spoke to Dr. Waller and clarified date to start Ferrlecit; order modified and Primary RN Abelino notified.
--- NOTE | 2022-01-16 22:16 | NUR ---
RN NOTES BLOOD SUGAR 110 mg/dL, NO INSULIN COVERAGE PER SLIDING SCALE. NO S/S OF HYPO/HYPERGLYCEMIA NOTED
[2022-01-17] MEDS: IV NS 0.9% 1,000 ML IV PRN ×2 (03:51→17:17)
[2022-01-17 04:00] VITALS: BP 120/77
[2022-01-17] MEDS: CEFTAZIDIME 2 G in IV D5W 100 ML IV SCH ×3 (04:38→20:24)
[2022-01-17 06:49] LABS: BASOPHILS % (AUTO) 0.5 % (0.0-2.0); EOSINOPHILS % (AUTO) 0.6 % (0.0-6.0); HEMATOCRIT 26 % (39-51); HEMOGLOBIN 8.4 g/dL (13.5-17.5); LYMPHOCYTES # (AUTO) 1.1 K/uL (0.8-4.8); LYMPHOCYTES % (AUTO) 17.2 % (20.0-44.0); MEAN CORPUSCULAR HGB CONC 32 g/dl (31.0-36.0); MEAN CORPUSCULAR VOLUME 87 fL (80-96); MONOCYTES # (AUTO) 0.7 K/uL (0.1-1.30); MONOCYTES % (AUTO) 11.1 % (2.0-12.0); NEUTROPHILS # (AUTO) 4.5 K/uL (1.8-8.9); NEUTROPHILS % (AUTO) 70.6 % (43.0-81.0); PLATELET COUNT (AUTO) 296 K/uL (150-450); RED BLOOD CELL COUNT(AUTO) 2.99 MIL/uL (4.5-6.0); WHITE BLOOD COUNT (AUTO) 6.4 K/uL (4.3-11.0)
--- NOTE | 2022-01-17 07:00 | NUR ---
RN NOTES PATIENT REMAIN STABLE THROUGH OUT THE SHIFT. RESPIRATORY EVEN AND UNLABORED, NO SOB NOTED, NOT IN ACUTE DISTRESS. REMAIN AFEBRILE. RUNNING WITH NS @ 75 ML/HR. WITH GUZMAN CATHETER INTACT AND PATENT, DRAINING WITH CLEAR YELLOW URINE VIA GRAVITY. PATIENT NOTED WITH LEFT ANKLE SURGICAL WOUND WITH WOUND VAC CONNECTED, SETTINGS TOLERATED WELL, WOUND DRESSING INTACT.ALL DUE MEDS GIVEN ORDERED. ALL SAFETY MEASURE PROVIDED. BED IN LOWEST POSITION, LOCKED. BED ALARM ARMED. CALL LIGHT WITH IN REACH. REPORT GIVEN TO MORNING SHIFT NURSE.
[2022-01-17 07:10] LABS: CALCIUM, SERUM 8.2 mg/dL (8.5-10.1); MAGNESIUM 1.8 mg/dL (1.8-2.4); POTASSIUM 3.2 mmol/L (3.5-5.1)
[2022-01-17 07:44] LABS: PROSTATE SPECIFIC ANTIGEN SCR 0.19 ng/mL (0.00-4.00); THYROID STIMULATING HORMONE 2.477 uIU/mL (0.358-3.74)
--- NOTE | 2022-01-17 07:57 | NUR ---
MS RN NOTES PATIENT IN BED ALERT ORIENTED, . RESPIRATORY EVEN AND UNLABORED, NO SOB NOTED, NOT IN ACUTE DISTRESS. REMAIN AFEBRILE. RUNNING WITH NS @ 75 ML/HR. RT UPPER ARM PICC LINE IN PLACE AND FLUSHED WELL WITH GUZMAN CATHETER INTACT AND PATENT, DRAINING WITH CLEAR YELLOW URINE VIA GRAVITY. PATIENT NOTED WITH LEFT ANKLE SURGICAL WOUND WITH WOUND VAC CONNECTED, SETTINGS TOLERATED WELL, WOUND DRESSING INTACT.. ALL SAFETY MEASURE PROVIDED. BED IN LOWEST POSITION,WILL CONT TO MONITOR
[2022-01-17 08:00] VITALS: BP 141/85
[2022-01-17] MEDS ORDERED: POTASSIUM CHLORIDE 20 MEQ TAB.PRT.SR PO ONE (08:30)
[2022-01-17] MEDS: ZINC SULFATE 220 MG CAPSULE PO SCH (09:00)
[2022-01-17] MEDS: DULOXETINE HCL 30 MG CAPSULE.DR PO SCH (09:00)
[2022-01-17] MEDS: FINASTERIDE (5 MG) 5 MG TABLET PO SCH (09:01)
[2022-01-17] MEDS: GUAIFENESIN LA 600 MG TABLET.SA PO SCH ×2 (09:01→20:24)
[2022-01-17] MEDS: DOCUSATE SODIUM 100 MG CAPSULE PO SCH ×2 (09:01→20:24)
[2022-01-17] MEDS: METOPROLOL TARTRATE 50 MG TABLET PO SCH ×2 (09:01→20:36)
[2022-01-17] MEDS: ASCORBIC ACID 500 MG TABLET PO SCH (09:01)
[2022-01-17] MEDS: SPIRONOLACTONE 25 MG TABLET PO SCH ×2 (09:02→16:28)
[2022-01-17] MEDS: CLOTRIMAZOLE 1% 15 GM TUBE TP SCH ×2 (09:07→16:39)
[2022-01-17] MEDS: Z GUARD REMEDY 4 OZ OINT TP SCH (09:07)
[2022-01-17] MEDS: BETHANECHOL CHLORIDE (10 MG) 10 MG TABLET PO SCH ×3 (09:07→16:28)
[2022-01-17] MEDS: BLOOD SUGAR DIAGNOSTIC 1 EACH STRIP VI SCH ×4 (09:08→21:23)
[2022-01-17] MEDS: CALCIUM CARBONATE 500 MG TAB.CHEW PO PRN ×2 (09:11→20:36)
[2022-01-17] MEDS: ONDANSETRON HCL/PF 4 MG/2 ML VIAL IVP PRN ×2 (09:12→20:36)
[2022-01-17] MEDS: PANTOPRAZOLE 40 MG TABLET.DR PO SCH (09:17)
--- NOTE | 2022-01-17 09:30 | NUR ---
MILK BOTTLING MACHINE OPERATOR NOTE RUTHIE LITIGATION SPECIALIST AT BEDSIDE UPDATED PATIENT CONDITION
--- NOTE | 2022-01-17 10:35 | NUR ---
MS RN NOTE CT CHEST DONE ORDERED
[2022-01-17 12:00] VITALS: BP 141/85
[2022-01-17] MEDS: SOD FERRIC GLUC 125 MG in IV NS 0.9% 100 ML IV SCH (14:11)
[2022-01-17 16:00] VITALS: BP 169/95
[2022-01-17] MEDS: RIVAROXABAN 15 MG TABLET PO SCH (17:10)
[2022-01-17] MEDS: ACETAMINOPHEN 325 MG TABLET PO PRN (18:09)
--- NOTE | 2022-01-17 18:28 | NUR ---
MS RN NOTES PT IN BED AWAKE AND ALERT ON NC 1L O2 SAT 91% GUZMAN CATHETER DRAINING YELLOW COLOR URINE ON IV FLUIDS RIGHT UPPER LINE INPLACE COMPLAIN OF ANKLE PAIN TYLENOL GIVEN BED LOWEST AND LOCKED POSITION ALL NEEDS ADDRESSED AND ATTENDED
--- NOTE | 2022-01-17 19:30 | NUR ---
RN OPENING NOTES RECEIVED PATIENT IN BED, A/O x 4, ABLE TO MAKE NEEDS KNOWN. PT IS BLIND. CURRENTLY ON NASAL CANNULA @ 1LPM SATING AT 93%. NO S/SX OF ACUTE DISTRESS NOTED AT THIS TIME. IV ACCESS NOTED AT BARNEY PICC LINE WITH NS RUNNING AT 75 CC/HR. PATENT AND INTACT. FLUSHES WELL. GUZMAN CATHETER IN PLACE DRAINING WITH CLEAR YELLOW URINE VIA GRAVITY. PT IS ALSO NOTED WITH LEFT ANKLE SURGICAL WOUND WITH WOUND VAC CONNECTED, SETTINGS TOLERATED WELL, WOUND DRESSING INTACT. ALL SAFETY MEASURES IN PLACE: BED IN LOWEST POSITION, LOCKED. BED ALARM ON. SR UP X 3. CALL LIGHT WITHIN REACH. WILL CONTINUE TO MONITOR PT CLOSELY.
[2022-01-17 20:00] VITALS: BP 142/96
[2022-01-17] MEDS: TAMSULOSIN 0.4 MG CAP.SR.24H PO SCH (21:17)
[2022-01-18 04:00] VITALS: BP 142/83
[2022-01-18] MEDS: CEFTAZIDIME 2 G in IV D5W 100 ML IV SCH ×3 (04:30→21:15)
[2022-01-18 06:15] LABS: BASOPHILS % (AUTO) 0.6 % (0.0-2.0); EOSINOPHILS % (AUTO) 0.5 % (0.0-6.0); HEMATOCRIT 27 % (39-51); HEMOGLOBIN 8.5 g/dL (13.5-17.5); LYMPHOCYTES % (AUTO) 13.9 % (20.0-44.0); MEAN CORPUSCULAR HGB CONC 32 g/dl (31.0-36.0); MEAN CORPUSCULAR VOLUME 88 fL (80-96); MONOCYTES # (AUTO) 0.9 K/uL (0.1-1.30); MONOCYTES % (AUTO) 12.5 % (2.0-12.0); NEUTROPHILS # (AUTO) 5.1 K/uL (1.8-8.9); NEUTROPHILS % (AUTO) 72.5 % (43.0-81.0); PLATELET COUNT (AUTO) 270 K/uL (150-450); RED BLOOD CELL COUNT(AUTO) 3.04 MIL/uL (4.5-6.0)
--- NOTE | 2022-01-18 07:30 | NUR ---
RN NOTE PT RECEIVED IN BED. PT IS ON 4L OF O2 VIA NC SHOWING NO S/SX OF RESP DISTRESS. PT IS A/OX3-4. GUZMAN CATH NOTED DRAINING YELLOW COLORED URINE. IV ACCESS NOTED ON RIGHT UPPER ARM PICC INFUSING NS AT 75 CC/HR. LINE FLUSHED, PATENT, AND INTACT WITH NO SIGNS OF INFILTRATION. ALL SAFETY MEASURES IMPLEMENTED. WILL CONTINUE TO MONITOR FOR ANY CHANGES DURING SHIFT.
--- NOTE | 2022-01-18 07:38 | NUR ---
RN CLOSING NOTES PT REMAINED STABLE THROUGHTOUT THE NIGHT. PATIENT IN BED, A/O x 4, ABLE TO MAKE NEEDS KNOWN. PT IS BLIND. ON NASAL CANNULA @ 1LPM SATING AT 93%. NO S/SX OF ACUTE DISTRESS NOTED. IV ACCESS NOTED AT BARNEY PICC LINE WITH NS RUNNING AT 75 CC/HR. PATENT AND INTACT. FLUSHES WELL. GUMZAN CATHETER IN PLACE DRAINING WITH CLEAR YELLOW URINE VIA GRAVITY. PT IS ALSO NOTED WITH LEFT ANKLE SURGICAL WOUND WITH WOUND VAC CONNECTED, SETTINGS TOLERATED WELL, WOUND DRESSING INTACT. ALL SAFETY MEASURES IMPLEMENTED: BED IN LOWEST POSITION, LOCKED. BED ALARM ON. SR UP X 3. CALL LIGHT WITHIN REACH. WILL ENDORSE TO AM SHIFT NURSE FOR ASHELY.
[2022-01-18] MEDS: BLOOD SUGAR DIAGNOSTIC 1 EACH STRIP VI SCH ×4 (07:49→22:15)
[2022-01-18] MEDS: INSULIN REGULAR, HUMAN 100 UNIT/ML 3 ML VIAL SQ PRN ×2 (07:55→11:20)
[2022-01-18 08:00] VITALS: BP 143/88
[2022-01-18 08:06] LABS: IMMUNOGLOBULIN A, SERUM 263 mg/dL (61-437); IMMUNOGLOBULIN G, SERUM 1300 mg/dL (603-1613); IMMUNOGLOBULIN M, SERUM 58 mg/dL (15-143)
[2022-01-18] MEDS: DULOXETINE HCL 30 MG CAPSULE.DR PO SCH (08:11)
[2022-01-18] MEDS: SPIRONOLACTONE 25 MG TABLET PO SCH ×2 (08:11→19:32)
[2022-01-18] MEDS: ASCORBIC ACID 500 MG TABLET PO SCH (08:11)
[2022-01-18] MEDS: ZINC SULFATE 220 MG CAPSULE PO SCH (08:15)
[2022-01-18] MEDS: BETHANECHOL CHLORIDE (10 MG) 10 MG TABLET PO SCH ×3 (08:15→21:58)
[2022-01-18] MEDS: METOPROLOL TARTRATE 50 MG TABLET PO SCH ×2 (08:17→21:18)
[2022-01-18] MEDS: FINASTERIDE (5 MG) 5 MG TABLET PO SCH (08:17)
[2022-01-18] MEDS: PANTOPRAZOLE 40 MG TABLET.DR PO SCH (08:17)
[2022-01-18] MEDS: GUAIFENESIN LA 600 MG TABLET.SA PO SCH ×2 (08:18→21:17)
[2022-01-18] MEDS: CLOTRIMAZOLE 1% 15 GM TUBE TP SCH ×2 (08:18→21:59)
[2022-01-18] MEDS: DOCUSATE SODIUM 100 MG CAPSULE PO SCH ×2 (08:18→21:17)
[2022-01-18] MEDS: Z GUARD REMEDY 4 OZ OINT TP SCH (08:18)
[2022-01-18] MEDS: POTASSIUM CHLORIDE 20 MEQ TAB.PRT.SR PO SCH ×2 (10:33→11:17)
[2022-01-18] MEDS: IV NS 0.9% 1,000 ML IV PRN (11:49)
--- NOTE | 2022-01-18 12:33 | NUR ---
WOUND CARE FOLLOW UP: PT WAS SEEN THIS AM FOR WOUND VAC DRESSING CHANGE TO LEFT LATERAL ANKLE. LESS SWELLING NOTED TO LEFT ANKLE. WOUND MEASURED 4.3CM X 1.3CM X 0.1CM AND IS RED IN COLOR WITH SCANT SEROUS DRAINAGE, NO ODOR. SKIN PREP AND VAC DRAPE WERE APPLIED TO PERIWOUND AREA, GRANUFOAM TO WOUND. VAC AT 100mmHg CONTINUOUS SETTING. PT TOLERATED WELL. DISCUSSED WITH DR ENRIQUEZ. WILL FOLLOW.
[2022-01-18] MEDS: SOD FERRIC GLUC 125 MG in IV NS 0.9% 100 ML IV SCH (14:11)
--- NOTE | 2022-01-18 15:00 | NUR ---
RN NOTE PT RESTING IN BED COMFORTABLY. NO CHANGES IN PT CONDITION DURING SHIFT. WILL CONTINUE TO MONITOR.
[2022-01-18 15:04] LABS: CARBON DIOXIDE 26 mmol/L (21-32); CHLORIDE 99 mmol/L (98-107); GLUCOSE 90 mg/dL (74-106); POTASSIUM 3.3 mmol/L (3.5-5.1); SODIUM SERUM 133 mmol/L (136-145); UREA NITROGEN, BLOOD 16 mg/dL (7-18)
--- NOTE | 2022-01-18 15:41 | NUR ---
RN NOTE ENDORSED TO MADELINE FOR ASHELY.
[2022-01-18 16:00] VITALS: BP 143/88
--- NOTE | 2022-01-18 19:40 | NUR ---
RN OPENING NOTES: RECEIVED PT IN BED SLEEPING BUT EASILY AROUSABLE, A/0 X4, LEGALLY BLIND, VERBALLY RESPONSIVE. ON O2 AT 4L/MIN VIA N/C AND PT TOLERATED WELL. IV ACCESS BARNEY PICC INTACT AND PATENT., RUNNING NS AT 75CC/HR. NO C/O PAIN OR DISCOMFORT. NO ACUTE DISTRESS. GUZMAN CATHETER IN PLACE, RUNNING BY GRAVITY. ALL SAFETY MEASURES IN PLACE. BED IN LOWEST POSITION AND LOCKED. SIDE RAILS UP X3, PLACE CALL LIGHT WITH IN REACH. WILL CONTINUE TO MONITOR
[2022-01-18 20:00] VITALS: BP 156/89
[2022-01-18] MEDS: FUROSEMIDE 20 MG/2 ML VIAL IV SCH (21:17)
[2022-01-18] MEDS: TAMSULOSIN 0.4 MG CAP.SR.24H PO SCH (21:17)
[2022-01-18] MEDS: RIVAROXABAN 15 MG TABLET PO SCH (21:54)
--- NOTE | 2022-01-18 22:00 | NUR ---
RN NOTES: BETHANECHOL, LOTRIMIN CREAM AND XARELTO GIVEN AT THIS TIME, WHICH WERE SCHEDULES FOR 1700 AND 1800. AM DIDN'T GIVE THE MEDICATIONS ON TIME. WILL CONTINUE TO MONITOR
--- NOTE | 2022-01-18 22:15 | NUR ---
RN NOTES: PT'S BLOOD SUGAR 90. NO COVERAGE NEEDED. NO S/S OF HYPER/HYPOGLYCEMIA. WILL CONTINUE TO MONITOR
[2022-01-19] VITALS (13 sets, daily range): BP systolic 95–143; BP diastolic 49–97
[2022-01-19] MEDS: CEFTAZIDIME 2 G in IV D5W 100 ML IV SCH ×3 (04:30→21:49)
[2022-01-19] MEDS: IV NS 0.9% 1,000 ML IV PRN (06:33)
--- NOTE | 2022-01-19 06:40 | NUR ---
RN CLOSING NOTES: PT IN BED SLEEPING BUT EASILY AROUSABLE, A/0 X4, LEGALLY BLIND, VERBALLY RESPONSIVE. ON O2 AT 4L/MIN VIA N/C AND PT TOLERATED WELL. O2 SAT 99%. IV ACCESS BARNEY PICC INTACT AND PATENT., RUNNING NS AT 75CC/HR. NO C/O PAIN OR DISCOMFORT. NO ACUTE DISTRESS. GUZMAN CATHETER IN PLACE, RUNNING BY GRAVITY. ALL DUE MEDS GIVEN PER ORDERED. PT REMAIN NPO AFTER MIDNIGHT FOR THE PROCEDURES TRANSESOPHAGEAL W/ ANESTHESIA. ALL SAFETY MEASURES IN PLACE. BED IN LOWEST POSITION AND LOCKED. SIDE RAILS UP X3, PLACE CALL LIGHT WITH IN REACH. WILL ENDORSE TO MORNING SHIFT NURSE.
--- NOTE | 2022-01-19 06:40 | NUR ---
RN NOTES: PT HAS WOUND VAC ON LEFT LATERAL ANKLE, COVERED WITH DRY DRESSING. NO DRAINAGE NOTED DURING THIS SHIFT. DRESSING REMAIN INTACT. WILL ENDORSE TO MORNING SHIFT NURSE.
[2022-01-19] MEDS: BLOOD SUGAR DIAGNOSTIC 1 EACH STRIP VI SCH ×4 (07:30→23:13)
[2022-01-19] MEDS: PANTOPRAZOLE 40 MG TABLET.DR PO SCH (07:30)
--- NOTE | 2022-01-19 07:58 | NUR ---
ms rn note patient in bed alert oriented, on 4l nc no sob noted at this time,, rt upper arm picc line in place , ,on ivf as ordered, patient on npo due to procedure, consent signed, all needs attended, bed in lowest and locked position , call light within reach
[2022-01-19 08:07] LABS: *SPE A/G RATIO 0.8 (0.7-1.7); *SPE ALPHA-1-GLOBULIN 0.3 g/dL (0.0-0.4); *SPE ALPHA-2-GLOBULIN 0.8 g/dL (0.4-1.0); *SPE BETA GLOBULIN 0.8 g/dL (0.7-1.3); *SPE M-SPIKE Not Observed g/dL (Not Observed)
[2022-01-19 08:16] LABS: CARBON DIOXIDE 26 mmol/L (21-32); CHLORIDE 101 mmol/L (98-107); CREATININE 0.9 mg/dL (0.6-1.3); GLUCOSE 97 mg/dL (74-106); POTASSIUM 3.2 mmol/L (3.5-5.1); SODIUM SERUM 136 mmol/L (136-145); UREA NITROGEN, BLOOD 13 mg/dL (7-18)
[2022-01-19] MEDS: SPIRONOLACTONE 25 MG TABLET PO SCH ×2 (08:53→16:34)
[2022-01-19] MEDS: FINASTERIDE (5 MG) 5 MG TABLET PO SCH (08:54)
[2022-01-19] MEDS: GUAIFENESIN LA 600 MG TABLET.SA PO SCH ×2 (08:54→21:48)
[2022-01-19] MEDS: DULOXETINE HCL 30 MG CAPSULE.DR PO SCH (08:54)
[2022-01-19] MEDS: METOPROLOL TARTRATE 50 MG TABLET PO SCH ×2 (08:54→21:48)
[2022-01-19] MEDS: DOCUSATE SODIUM 100 MG CAPSULE PO SCH ×2 (08:54→22:00)
[2022-01-19] MEDS: ZINC SULFATE 220 MG CAPSULE PO SCH (08:55)
[2022-01-19] MEDS: BETHANECHOL CHLORIDE (10 MG) 10 MG TABLET PO SCH ×3 (08:55→16:34)
[2022-01-19] MEDS: CLOTRIMAZOLE 1% 15 GM TUBE TP SCH ×2 (08:56→17:03)
[2022-01-19] MEDS: Z GUARD REMEDY 4 OZ OINT TP SCH (08:56)
[2022-01-19] MEDS: FUROSEMIDE 20 MG/2 ML VIAL IV SCH ×2 (08:58→16:34)
[2022-01-19] MEDS: ASCORBIC ACID 500 MG TABLET PO SCH (09:00)
--- NOTE | 2022-01-19 09:30 | NUR ---
RN NOTES PATIENT TRANSFERED TO ICU REPORT GIVEN TO LISY BABB
--- NOTE | 2022-01-19 10:29 | NUR ---
WOUND CARE FOLLOW UP: PT SEEN FOR LEFT ANKLE WOUND VAC DRAPE SEAL ISSUE AFTER PT TRANSPORT TO ICU. SEAL ACHIEVED WITH VAC DRAPE REINFORCEMENT. VAC AT 100mmHg CONTINUOUS SETTING WITH 30cc SEROUS DRAINAGE IN CANISTER. PT TOLERATED WELL. WILL FOLLOW.
[2022-01-19] MEDS: POTASSIUM CHLORIDE 20 MEQ TAB.PRT.SR PO SCH ×2 (11:10→11:37)
--- NOTE | 2022-01-19 11:21 | NUR ---
PT ARRIVED IN ICU FOR NATALY WITH DR ARAYA. PT ALERT OX3, TOTALLY BLIND, PER PATIENT. 1 MED MUCOUSY BM CLEANED UP ON ARRIVAL. PT SET UP FOR NATALY. 1046 TIME OUT DONE. CORRECT PATIENT NAME, AND PER PATIENT, CORRECT PROCEDURE. PROCEDURE STARTED AFTER TIME OUT 1055 PROCEDURE DONE, PER ANESTHESIA MD 60MG OF PROPOFOL GIVEN DURING PROCEDURE. 1100 PT WIDE AWAKE, TALKING, OX3, ASKING FOR CALL LIGHT AND WANTING TO WATCH TV. PT WILL BE TRANSFERRED BACK TO PREVIOUS ROOM 117-1 AFTER PATIENT EATS LUNCH.
--- NOTE | 2022-01-19 12:50 | NUR ---
television picture tube rebuilder note transferred from icu alert oriented, no sob noted ,call light within reach
[2022-01-19] MEDS: SOD FERRIC GLUC 125 MG in IV NS 0.9% 100 ML IV SCH (14:28)
--- NOTE | 2022-01-19 15:21 | NUR ---
ms rn note rounds made ,turn reposition keep clean dry
--- NOTE | 2022-01-19 15:41 | NUR ---
RN NOTE DR. YANN RBOIN THE ONCOLOGIST CONTACTED FOR MEDICAL RECORDS TO BE SENT TO UROLOGIST AT [facility]. CALLED [facility] AND [facility] TO OBTAIN MEDICAL RECORDS
[2022-01-19] MEDS: RIVAROXABAN 15 MG TABLET PO SCH (17:07)
--- NOTE | 2022-01-19 18:44 | NUR ---
RN CLOSING NOTES MR. SALAZAR IS A/O X4, AND ABLE TO FOLLOW DIRECTIONS. HE IS ON 4L NASAL CANULA SAT 99% PATIENT IS LEGALLY BLIND, WENT FOR PROCEDURE TRANSESOPHAGEAL ECHOCARDIOGRAM AND RETURNED FROM ICU IN STABLE CONDITION WITH VITAL WNL. WOUND VAC IS DRAINING SMALL AMOUNT OF STRAW COLORED OUTPUT. PICC LINE INTACT FLUSHES WITH EASE NS @75ML/HR. FAXED MED RECORD REQUEST TO [facility] WAITING FOR RESPONSE. BED IN LOWEST POSITION WITH SIDE RAILS UP CALL LIGHT WITHIN REACH WILL CONTINUE TO MONITOR
--- NOTE | 2022-01-19 20:00 | NUR ---
RN NOTE RECEIVED PT AOX4. NOT IN ANY DISTRESS. PT DENIES ANY SOB OR PAIN. O2 SAT AT 94% ON O2 AT 4L. PT STATED HE FEELS FINE. PT LEGALLY BLIND, CALL LIGHT WITHIN REACH. PT WOUND VAC LEAKAGE NOTED. DRESSING CLEAN AND DRY. WILL CONTINUE TO MONITOR,
[2022-01-19] MEDS: TAMSULOSIN 0.4 MG CAP.SR.24H PO SCH (21:48)
[2022-01-20] MEDS: ACETAMINOPHEN 325 MG TABLET PO PRN (02:39)
--- NOTE | 2022-01-20 02:40 | NUR ---
RN NOTE PT COMPLAINED OF PAIN ON LEFT ANKLE. TYLENOL GIVEN ORDERED. LEFT ANKLE WITH WOUND VAC, REINFORCED DRESSING, NO LEAKAGE NOTED. WILL CONTINUE TO MONITOR.
[2022-01-20 04:00] VITALS: BP 133/77
[2022-01-20] MEDS: CEFTAZIDIME 2 G in IV D5W 100 ML IV SCH ×2 (04:49→12:26)
--- NOTE | 2022-01-20 06:41 | NUR ---
RN NOTE PT SLEEPING AROUSES EASILY. NOT IN ANY DISTRESS. CONTINUE ON O2 THERAPY. DENIES ANY SOB. PAIN RELIEVED. BARNEY PICC LINE INTACT AND PATENT, CHANGED DRESSING ASEPTICALLY. CONTINUOUS WOUND VAC ON L ANKLE. PT WITH 2 LOOSE BM. GUZMAN DRAINING YELLOW URINE OUTPUT. CALL LIGHT WITHIN REACH AT ALL TIMES, NEEDS ATTENDED. WILL ENDORSE TO NEXT SHIFT NURSE FOR ASHELY.
[2022-01-20 07:40] LABS: BASOPHILS % (AUTO) 0.4 % (0.0-2.0); EOSINOPHILS % (AUTO) 0.7 % (0.0-6.0); HEMATOCRIT 27 % (39-51); HEMOGLOBIN 8.7 g/dL (13.5-17.5); LYMPHOCYTES # (AUTO) 0.7 K/uL (0.8-4.8); LYMPHOCYTES % (AUTO) 10.1 % (20.0-44.0); MEAN CORPUSCULAR HGB CONC 32 g/dl (31.0-36.0); MEAN CORPUSCULAR VOLUME 90 fL (80-96); MONOCYTES % (AUTO) 13.5 % (2.0-12.0); NEUTROPHILS # (AUTO) 5.5 K/uL (1.8-8.9); NEUTROPHILS % (AUTO) 75.3 % (43.0-81.0); PLATELET COUNT (AUTO) 240 K/uL (150-450); RED BLOOD CELL COUNT(AUTO) 3.03 MIL/uL (4.5-6.0); WHITE BLOOD COUNT (AUTO) 7.3 K/uL (4.3-11.0)
[2022-01-20 08:00] VITALS: BP 148/95
[2022-01-20 08:10] LABS: ALANINE AMINOTRANSFERASE 70 U/L (12-78); ALBUMIN 2.1 g/dL (3.4-5.0); ALKALINE PHOSPHATASE 88 U/L (46-116); ASPARTATE AMINOTRANSFERASE 34 U/L (15-37); BILIRUBIN,TOTAL 0.3 mg/dL (0.2-1.0); CALCIUM, SERUM 8.1 mg/dL (8.5-10.1); CARBON DIOXIDE 31 mmol/L (21-32); CHLORIDE 101 mmol/L (98-107); CREATININE 0.9 mg/dL (0.6-1.3); GLUCOSE 104 mg/dL (74-106); MAGNESIUM 1.9 mg/dL (1.8-2.4); PHOSPHORUS 2.3 mg/dL (2.5-4.9); POTASSIUM 3.1 mmol/L (3.5-5.1); SODIUM SERUM 135 mmol/L (136-145); TOTAL PROTEIN, SERUM 6.2 g/dL (6.4-8.2); UREA NITROGEN, BLOOD 11 mg/dL (7-18)
[2022-01-20] MEDS: BLOOD SUGAR DIAGNOSTIC 1 EACH STRIP VI SCH ×3 (08:11→16:38)
[2022-01-20] MEDS: FUROSEMIDE 20 MG/2 ML VIAL IV SCH (08:35)
[2022-01-20] MEDS: METOPROLOL TARTRATE 50 MG TABLET PO SCH (08:36)
[2022-01-20] MEDS: PANTOPRAZOLE 40 MG TABLET.DR PO SCH (08:36)
[2022-01-20] MEDS: FINASTERIDE (5 MG) 5 MG TABLET PO SCH (08:36)
[2022-01-20] MEDS: DULOXETINE HCL 30 MG CAPSULE.DR PO SCH (08:36)
[2022-01-20] MEDS: ASCORBIC ACID 500 MG TABLET PO SCH (08:36)
[2022-01-20] MEDS: GUAIFENESIN LA 600 MG TABLET.SA PO SCH (08:36)
[2022-01-20] MEDS: BETHANECHOL CHLORIDE (10 MG) 10 MG TABLET PO SCH ×3 (08:36→16:24)
[2022-01-20] MEDS: ZINC SULFATE 220 MG CAPSULE PO SCH (08:36)
[2022-01-20] MEDS: DOCUSATE SODIUM 100 MG CAPSULE PO SCH (08:36)
[2022-01-20] MEDS: SPIRONOLACTONE 25 MG TABLET PO SCH ×2 (08:37→16:24)
[2022-01-20] MEDS: CLOTRIMAZOLE 1% 15 GM TUBE TP SCH ×2 (09:01→16:25)
[2022-01-20] MEDS: Z GUARD REMEDY 4 OZ OINT TP SCH (09:01)
[2022-01-20] MEDS ORDERED: K PHOS NEUTRAL 250 MG TABLET PO ONE (10:00)
[2022-01-20] MEDS ORDERED: POTASSIUM CHLORIDE 20 MEQ TAB.PRT.SR PO SCH (10:00)
--- NOTE | 2022-01-20 10:09 | NUR ---
RN OPENING NOTE PATIENT AWAKE IN BED RESTING, A/O X4. NO S/S OF PAIN NOTED AT THIS TIME. ON 4L OXYGEN, NO DISTRESS OR SHORTNESS OF BREATH NOTED. IV ACCESS BARNEY PICC-LINE, INTACT, PATENT AND FLUSHING WELL. PATIENT HAVE GUZMAN CATHETER, IN PLACE AND DRAINING WELL. FALL AND SAFETY MEASURES IN PLACE, BED ALARM ON BED IN LOW AND LOCK POSITION, CALL LIGHT AND TABLE WITHIN EASY REACH, SIDE RAILS UP X2. WILL CONTINUE TO MONITOR.
[2022-01-20 12:00] VITALS: BP 110/49
[2022-01-20] MEDS: SOD FERRIC GLUC 125 MG in IV NS 0.9% 100 ML IV SCH (13:48)
[2022-01-20 16:05] VITALS: BP 146/90
--- NOTE | 2022-01-20 17:28 | NUR ---
NUCLEAR TEST TECHNICIAN NOTE PATIENT DISCHARGE IN MEDICAL STABLE CONDITION. A/O X4, V/S TAKEN, STABLE AND RECORDED. IV ACCESS BARNEY PICC LINE, PATIENT WILL BE ON IV ANTIBIOTICS. NAME ARM BAND REMOVED. ALL BELONGINGS CHECKED AND SIGNED. HEALTH TEACHING AND DISCHARGE INSTRUCTIONS GIVEN TO PATIENT AND NURSE AT FACILITY, VERBALIZED UNDERSTANDING. REPORT WAS GIVEN TO HOLLEY ELLISON AT [facility]– [place]. PATIENT LEFT UNIT VIA GURNEY WITH NO SIGNS OF DISTRESS, ACCOMPANIED BY PARAMEDICS. CHARGE NURSE AWARE OF DISCHARGED.
[2022-01-21] MEDS ORDERED: FUROSEMIDE 20 MG TABLET PO SCH (09:00)
== END 2022-01-20 22:02 | DRG 356 ==
LOC: ER 11:09 → TELE1 16:09 → MEDSG1 16:50 → ICU 01-19 09:45 → MEDSG1 01-19 13:10
PROVIDERS: ADMIT Nurse Practitioner Acute Care
PROC: B24BZZ4 Ultrasonography of Heart with Aorta, Transesophageal (ICD-10-PCS; 2022-01-12)
PROC: 0JBR0ZZ Excision of Left Foot Subcutaneous Tissue and Fascia, Open Approach (ICD-10-PCS; principal; 2022-01-13)
DX: K62.89 Other specified diseases of anus and rectum (principal); J15.9 Unspecified bacterial pneumonia; L97.329 Non-pressure chronic ulcer of left ankle with unspecified severity; K56.600 Partial intestinal obstruction, unspecified as to cause; E44.0 Moderate protein-calorie malnutrition; N39.0 Urinary tract infection, site not specified; I50.32 Chronic diastolic (congestive) heart failure; K56.7 Ileus, unspecified; J90 Pleural effusion, not elsewhere classified; Z20.822 Contact with and (suspected) exposure to COVID-19; E11.40 Type 2 diabetes mellitus with diabetic neuropathy, unspecified; E11.621 Type 2 diabetes mellitus with foot ulcer; D50.9 Iron deficiency anemia, unspecified; E88.09 Other disorders of plasma-protein metabolism, not elsewhere classified; E87.6 Hypokalemia; N40.1 Benign prostatic hyperplasia with lower urinary tract symptoms; R33.9 Retention of urine, unspecified; B96.89 Other specified bacterial agents as the cause of diseases classified elsewhere; Z79.4 Long term (current) use of insulin; Z79.51 Long term (current) use of inhaled steroids; Z79.01 Long term (current) use of anticoagulants; E11.622 Type 2 diabetes mellitus with other skin ulcer; N20.0 Calculus of kidney; Z98.890 Other specified postprocedural states; H54.8 Legal blindness, as defined in USA; I11.0 Hypertensive heart disease with heart failure; I48.0 Paroxysmal atrial fibrillation; Z86.19 Personal history of other infectious and parasitic diseases; R91.1 Solitary pulmonary nodule; C61 Malignant neoplasm of prostate; K57.30 Diverticulosis of large intestine without perforation or abscess without bleeding
CPT/HCPCS: 36415; 71045-TC; 71250-TC; 80048-TC; 80053-TC; 80061-TC; 80076-TC; 80202-TC; 81001; 82378; 82607-TC; 82728-TC; 82784; 82962-TC; 83540-TC; 83605-TC; 83735-TC; 84100-TC; 84153-TC; 84154-TC; 84155; 84165; 84443-TC; 84484-TC; 85025-TC; 85652-TC; 85730-TC; 86140-TC; 86334; 86803; 87040-TC; 87081-TC; 87086-TC; 87186-TC; 87806; 93307-TC; 93312-TC; 94799-TC; A6253; C9803; G0378; J0692; J0713; J1650; J1815; J1940; J2405; J2543; J2704; J2916; J3370; J3480; J3490; J7030; J7050; J7060